=== PATIENT | male | born 1960 | race Caucasian/White ===

== ENCOUNTER → 2020-10-12 | Day surgery (SDC) | payer OTHER ==
[~2020-10-12] VITALS: Ht 177.8 cm; Wt 90.0 kg
[~2020-10-12] MED LIST: HYDROmorphone 2 MG/ML VIAL IVP PRN; IV RINGERS,LACTATED 1000ML 1,000 ML IV SCH; LIDOCAINE 2% PF 5 ML VIAL. ONE; MORPHINE SULFATE 2 MG/ML INJ. IVP PRN; PROCHLORPERAZINE 10 MG/2 ML VIAL. IVP PRN; PROPOFOL 10 MG/ML (20ML) VIAL. IV ONE; fentaNYL PF VIAL 100 MCG/2 ML VIAL IVP PRN
[2020-10-12 07:25] VITALS: BP 148/82
[2020-10-12 08:55] VITALS: BP 142/65
--- NOTE | 2020-10-15 15:07 | PATHOLOGY ---
[facility] Accession Number: [id number] . 01 Material submitted: . PART A: colon - ASCENDING COLON POLYP. Modifiers: ascending PART B: sigmoid colon - SIGMOID POLYP . 01 Clinician provided ICD-10: K62.5 . 01 Clinical history: . SCREENING/COLONOSCOPY/RECTAL BLEEDING . . 02 Diagnosis: A. Colon biopsies, ascending colon polyp: - Tubular adenoma. . B. Colon biopsies, sigmoid polyp: - Tubular adenoma. ([facility]; 10/15/2020) S 10/15/2020 1151 Local . 02 Comment: There is no high grade dysplasia or evidence of malignancy. ([facility]PM:[facility]ger; 10/15/2020) . 02 Electronically signed: . Wes La MD, Pathologist NPI- [id number] . 01 Gross description: . A. The specimen is submitted in formalin, labeled "Chavez, Zan, ascending colon polyp". Received are 4 segments of pale granados tissue ranging in size from 0.2 to 0.4 cm in maximum dimensions. The specimen is submitted in cassette A1. . B. The specimen is submitted in formalin, labeled "Chavez, Zan, sigmoid polyp". Received are 2 segments of pale granados tissue ranging in size from 0.3 to 0.4 cm in maximum dimensions. The specimen is submitted in cassette B1. ([facility]; 10/12/2020) NRI/NRI 10/12/2020 1731 Local . 02 Pathologist provided ICD-10: D12.2, D12.5 . 02 CPT . 211535, 203389 Specimen Comment: Report sent to / DR STEWARD Specimen Comment: A duplicate report has been generated due to demographic updates. Performed at: [address] [facility] [address], [place] [id number] MD Sukhwinder Byers MD Phone: [phone] Performed at: 02 [facility] [address] [place], [place] [id number] MD Wes La MD Phone: [phone]
== END | disposition home or self-care (01) ==
LOC: ENDOS 06:58
PROVIDERS: ATTEND Internal Medicine Gastroenterology
DX: K92.2 Gastrointestinal hemorrhage, unspecified (principal); K92.1 Melena; D12.2 Benign neoplasm of ascending colon; D12.5 Benign neoplasm of sigmoid colon; K63.89 Other specified diseases of intestine; I10 Essential (primary) hypertension; E78.00 Pure hypercholesterolemia, unspecified; Z72.89 Other problems related to lifestyle; Z79.899 Other long term (current) drug therapy
CPT/HCPCS: 45380; 45385; 88305; J2704

== ENCOUNTER → 2021-03-14 | Outpatient (CLI) | payer OTHER ==
[2020-10-12 08:55] VITALS: BP 142/65
--- NOTE | 2021-03-14 15:48 | KCIC ---
CT for coronary artery calcium scoring, without IV contrast, 03/14/2021 3:44 PM INDICATION: Reason: Cardiovascular screening, hyperlipidemia. / Spl. Instructions: / History: Technique: Noncontrast CT images through the coronary arteries was performed . Findings: No significant noncardiac findings are identified. Visual inspection of the coronary arteries demonstrates calcification in the left anterior descending artery. The remaining coronary arteries are without discernible calcified plaque. The computer-generated calcium scoring utilizing AJ-130 criteria are as follows: Left Main Artery: 0. Left Anterior Descending Artery: 140.3. Left Circumflex Artery: 0. Right Coronary Artery: 0. The total calcium score is 140.3. Impression: Your total calcium score is 140.3.A moderate amount of plaque is present. This correlates with heart disease, and a moderate to high risk for a myocardial infarction. Table: 0: No plaque is present. The chance of significant heart disease is less than 5%, and corresponds to a very low risk for a myocardial infarction. 1-10: A small amount of plaque is present. The chance of significant heart disease is less than 10%, and corresponds to a low risk for a myocardial infarction. 11-100: Plaque is present. This correlates with mild heart disease and a moderate risk for a myocardi al infarction. 101-400: A moderate amount of plaque is present. This correlates with heart disease, and a moderate t o high risk for a myocardial infarction. Over 400: A large amount of plaque is present. This correlates with a greater than 90% chance of a h igh grade stenosis. The risk for myocardial infarction is high. Electronically signed by: Diego Bustos MD (03/14/2021 3:46 PM) [id number]
== END ==
LOC: KCIC CT 15:04
PROVIDERS: ATTEND Physician Assistant
DX: I25.10 Atherosclerotic heart disease of native coronary artery without angina pectoris (principal); E78.5 Hyperlipidemia, unspecified
CPT/HCPCS: 75571